=== PATIENT | female | born 1975 | race Two or more races ===

== ENCOUNTER 2016-07-03 15:07 | Emergency (ER) | payer OTHER, MEDICAID ==
[~2016-07-03] VITALS: Ht 147.3 cm; Wt 59.9 kg
[2016-07-03] MEDS ORDERED: IV NS 0.9% 1,000 ML ONE (15:14)
[2016-07-03] MEDS ORDERED: IV SET PRIMARY PUMP SET 1 EA INFUS.SET MC ONE (15:14)
[2016-07-03] MEDS ORDERED: IV NS 0.9% 1,000 ML BAG IV ONE (15:30)
[2016-07-03 15:36] LABS: BASOPHILS % (AUTO) 0.6 % (0.0-2.0); DIFF TOTAL % 100 %; EOSINOPHILS # (AUTO) 0.8 /CMM (0.0-0.7); EOSINOPHILS % (AUTO) 10.6 % (0.0-6.0); HEMATOCRIT 42 % (33-45); HEMOGLOBIN 13.8 g/dL (11.5-14.8); LYMPHOCYTES # (AUTO) 1.4 /CMM (0.8-4.8); LYMPHOCYTES % (AUTO) 17.8 % (20.0-44.0); MEAN CORPUSCULAR HEMOGLOBIN 28 PG (26.0-33.0); MEAN CORPUSCULAR HGB CONC 33 g/dl (31.0-36.0); MEAN CORPUSCULAR VOLUME 85 fL (82-100); MONOCYTES # (AUTO) 0.7 /CMM (0.1-1.30); MONOCYTES % (AUTO) 9.3 % (2.0-12.0); NEUTROPHILS # (AUTO) 4.9 /CMM (1.8-8.9); NEUTROPHILS % (AUTO) 61.7 % (43.0-81.0); PLATELET COUNT (AUTO) 253 /CMM (150-450); RED BLOOD CELL COUNT(AUTO) 4.92 MIL/uL (4.0-5.2); WHITE BLOOD COUNT (AUTO) 7.8 K/uL (4.3-11.0)
[2016-07-03] MEDS ORDERED: FAMOTIDINE/PF INJ 20 MG/2 ML VIAL IV ONE ×2 (15:38→16:00)
[2016-07-03 15:44] LABS: ANION GAP 16 (5-14); CALCIUM, SERUM 8.6 mg/dL (8.5-10.1); CARBON DIOXIDE 24 mmol/L (21-32); CHLORIDE 105 mmol/L (98-107); CREATININE 0.7 mg/dL (0.6-1.3); GFR 93 mL/min (>60); GLUCOSE 96 mg/dL (74-106); POTASSIUM 3.6 mmol/L (3.5-5.1); SODIUM SERUM 141 mmol/L (136-145); UREA NITROGEN, BLOOD 14 mg/dL (7-18)
[2016-07-03 15:48] LABS: INR 0.95 (0.87-1.13)
[2016-07-03 15:53] LABS: TROPONIN I < 0.017 ng/mL (0.00-0.056)
[2016-07-03 16:09] LABS: ALBUMIN 3.4 g/dL (3.4-5.0); BILIRUBIN,DIRECT 0.1 mg/dL (0.0-0.2); BILIRUBIN,TOTAL 0.2 mg/dL (0.2-1.0); INDIRECT BILIRUBIN 0.1 mg/dL (0.0-1.1); TOTAL PROTEIN, SERUM 6.9 g/dL (6.4-8.2)
[2016-07-03 16:57] VITALS: BP 136/77
[2016-07-03 17:09] LABS: BAND % (MANUAL) 3 % (0.0-5.0); BASOPHILS % (MANUAL) 0 % (0.0-2.0); EOSINOPHILS % (MANUAL) 7 % (0-4); LYMPHOCYTES % (MANUAL) 23 % (16-48)
[2016-07-03 17:10] LABS: PLATELET ESTIMATE ADEQUATE; RBC MORPHOLOGY COMMENT NORMAL RBC MORPH
== END 2016-07-03 16:57 | disposition home or self-care (01) ==
LOC: ER 15:09
DX: R55 Syncope and collapse (principal); K29.70 Gastritis, unspecified, without bleeding
CPT/HCPCS: 36415; 71010; 76705; 80048; 80076; 84484; 85025; 85730; 93005; 96361; 96374; 99285; A4606; J3490; J7030; Z7610